=== PATIENT | male | born 1965 | race Caucasian/White ===

== ENCOUNTER → 2025-05-31 | Outpatient (CLI) | payer MEDICAID, SELFPAY ==
--- NOTE | 2025-05-31 10:26 | XR_ITS ---
Examination: Knee, right, 3 views Technique: Knee AP, lateral, oblique 3 views Date and time of exam: May 31, 2025, 1104 hours INDICATIONS: Worsening knee pain 30 years. FINDINGS: Moderate osteopenia Moderate narrowing medial joint space Moderate knee effusion No fracture IMPRESSION: Moderate narrowing medial joint space Moderate knee effusion, seen with internal derangement of the knee
--- NOTE | 2025-05-31 10:26 | XR_ITS ---
Examination: Bilateral hands, 6 views. Technique: AP, Oblique, Lateral each hand total 6 views Date and time of exam: May 31, 2025, 1124 hours INDICATIONS: Bilateral hand pain and stiffness for 5 months Findings: Moderate osteopenia Old fracture deformities left fourth and fifth metacarpals and proximal phalanx left fifth digit Moderate osteoarthritis left first carpometacarpal joint Moderate osteoarthritis right first carpometacarpal joint Old fracture deformity distal right fifth metacarpal Mild osteoarthritis interphalangeal joints IMPRESSION: Old fracture deformities as above
== END | disposition home or self-care (01) ==
PROVIDERS: PCP Family Medicine; Referring Provider Nurse Practitioner Family; Visit Provider Nurse Practitioner Family
DX: M79.641 Pain in right hand (principal); M25.861 Other specified joint disorders, right knee; M25.461 Effusion, right knee; M23.8X1 Other internal derangements of right knee; M21.941 Unspecified acquired deformity of hand, right hand; Z87.81 Personal history of (healed) traumatic fracture
CPT/HCPCS: 73130; 73562